=== PATIENT | female | born 1955 | race Caucasian/White ===

== ENCOUNTER → 2018-08-25 | Outpatient (CLI) | payer BC ==
--- NOTE | 2018-08-25 10:06 | RAD ---
Examination: CT head and maxillofacial bones HISTORY: History of headache, dizziness, face pain COMPARISON: None available Technique: Axial CT images of the head was performed without contrast. Axial centimeters maxillary facial bones were performed without contrast. Coronal and sagittal reformats are performed Exposure: One or more of the following individualized dose reduction techniques were utilized for this examination: 1. Automated exposure control 2. Adjustment of the mA and/or kV according to patient size 3. Use of iterative reconstruction technique FINDINGS: No abnormal attenuation within the brain parenchyma. No evidence of acute intracranial hemorrhage. No extra-axial fluid collections. No mass effect or midline shift. Ventricular size is appropriate. Basal cisterns are patent. No fractures identified.Bullard-white differentiation is preserved.Globes and orbits are within normal limits. The visualized bilateral frontal sinuses, maxillary sinuses, sphenoid sinuses, ethmoidal sinuses are clear. The bilateral mastoid air cells are clear. IMPRESSION: 1. No acute intracranial findings. 2. The sinuses are clear. Electronically signed by: Keyon Vargas MD (08/25/2018 10:01 AM) [facility]
--- NOTE | 2018-08-25 11:58 | RAD ---
EXAM: Cervical spine, 5 views. HISTORY: Pain. COMPARISON: None. FINDINGS: Frontal, lateral, bilateral oblique and odontoid views of the cervical spine are obtained. There is minimal anterolisthesis of C3 on C4 and C4 on C5. There is degenerative endplate remodeling with disc space narrowing and osteophytosis at C5-C6 and C6-C7. There is facet arthropathy at multiple levels. There is a tiny cyst or erosion along the anterior superior aspect of C3. There is foraminal stenosis of the lower cervical levels. IMPRESSION: 1. Multilevel degenerative changes of the cervical spine, described in detail above. There is associated foraminal stenosis at the lower cervical levels. 2. No acute osseous finding. Electronically signed by: Venus Dangelo MD (08/25/2018 11:53 AM) [facility]
== END | disposition home or self-care (01) ==
LOC: CT 09:18
PROVIDERS: ATTEND Physician Assistant Medical
DX: M47.812 Spondylosis without myelopathy or radiculopathy, cervical region (principal); R51 Headache; M48.02 Spinal stenosis, cervical region
CPT/HCPCS: 70450; 70486; 72050

== ENCOUNTER → 2020-09-22 | Outpatient (CLI) | payer BC ==
--- NOTE | 2020-10-01 09:08 | RAD ---
DATE: 09/22/2020 9:05 AM EXAM: MAMMO IRAIS SCREENING BILATERAL HISTORY: Screening COMPARISON: 02/09/2019 Bilateral CC and MLO views of the breasts were performed. Bilateral breast tomosynthesis was performed in CC and MLO projections. This study was interpreted with the benefit of Computerized Aided Detection (CAD). FINDINGS: Breast Density: DENSE The breast Parenchyma is dense, which could reduce the sensitivity of mammography. Breast parenchyma level density D. No suspicious masses, microcalcifications or architectural distortion is present to suggest malignancy in either breast. The visualized axillae are unremarkable. IMPRESSION: No mammographic evidence of malignancy. BI-RADS CATEGORY: 1 NEGATIVE RECOMMENDED FOLLOW-UP: 12M 12 MONTH FOLLOW-UP Annual screening mammography is recommended, unless clinically indicated sooner based on symptoms or change in physical exam. PQRS compliance statement: Patient information was entered into a reminder system with a target due date for the next mammogram. Mammography is a sensitive method for finding small breast cancers, but it does not detect them all and is not a substitute for careful clinical examination. A negative mammogram does not negate a clinically suspicious finding and should not result in delay in biopsying a clinically suspicious abnormality. "Our facility is accredited by the [employer] Mammography Program."
== END ==
LOC: MAMMO 08:46
PROVIDERS: ATTEND Obstetrics & Gynecology
DX: Z12.31 Encounter for screening mammogram for malignant neoplasm of breast (principal)
CPT/HCPCS: 77063; 77067

== ENCOUNTER → 2020-12-15 | Outpatient (CLI) | payer BC ==
--- NOTE | 2020-12-15 11:03 | CARD ---
MR#: [id number] Date of Study: 12/15/2020 Ordering Physician: KRISTAL MCCORD, Referring Physician: KRISTAL MCCORD, Tech: Velia Freeman RDCS APPROVED REPORT EXAM: Two-dimensional and M-mode echocardiogram with Doppler and color Doppler. Other Information Quality : Good INDICATION Chest Pain 2D DIMENSIONS RVDd2.0 (2.9-3.5cm)Left Atrium(2D)2.6 (1.6-4.0cm) IVSd0.8 (0.7-1.1cm)Aortic Root(2D)2.6 (2.0-3.7cm) LVDd3.9 (3.9-5.9cm)LVOT Diameter1.9 (1.8-2.4cm) PWd0.8 (0.7-1.1cm)LVDs2.2 (2.5-4.0cm) FS (%) 30.0 %SV51.2 ml LVEF(%)60.0 (>50%) Aortic Valve AoV Peak Silviano.155.1cm/sAoV VTI26.0cm AO Peak GR.9.6mmHgLVOT Peak Silviano.130.9cm/s LVOT VTI 21.49cmAO Mean GR.5mmHg GAETANO (VMAX)2.44uq0HYL (VTI)2.25cm2 Mitral Valve MV E Knpuwkch24.6cm/sMV DECEL ATNV014wh MV A Ziqvwdtt34.0cm/sE/A Ratio0.8 Tricuspid Valve TR P. Jhvjrkyp140mw/sRAP XANFNXPX9jdMo TR Peak Gr.42mnRvBOTA23kfIp Pulmonary Vein S1 Zhmqriqi38.6cm/sD2 Ljtutnqi98.4cm/s LEFT VENTRICLE The left ventricle is normal size. There is normal left ventricular wall thickness. The left ventricu lar systolic function is normal and the ejection fraction is within normal range. The Ejection Fracti on is 55-60%. There is normal LV segmental wall motion. The left ventricular diastolic function and f illing is normal for age. RIGHT VENTRICLE The right ventricle is normal size. The right ventricular systolic function is normal. ATRIA The left atrium size is normal. The right atrium size is normal. The interatrial septum is intact wit h no evidence for an atrial septal defect or patent foramen ovale as noted on 2-D or Doppler imaging. AORTIC VALVE The aortic valve is calcified but opens well. Doppler and Color Flow revealed no significant aortic r egurgitation. There is no significant aortic valvular stenosis. MITRAL VALVE The mitral valve is calcified but opens well. Mitral annular calcification is mild. There is no evide nce of mitral valve prolapse. There is no mitral valve stenosis. Doppler and Color Flow revealed no m itral valve regurgitation noted. TRICUSPID VALVE The tricuspid valve is normal in structure and function. Doppler and Color Flow revealed trace tricus pid regurgitation. The PA pressure was estimated at 21 mmHg. There is no tricuspid valve stenosis. PULMONIC VALVE The pulmonic valve is not well visualized. Doppler and Color Flow revealed no pulmonic valvular regur gitation. There is no pulmonic valvular stenosis. GREAT VESSELS The aortic root is normal in size. The ascending aorta is normal in size. The IVC is normal in size a nd collapses >50% with inspiration. PERICARDIAL EFFUSION There is no evidence of significant pericardial effusion. Critical Notification Critical Value: No <Conclusion> The left ventricle is normal size. The left ventricular systolic function is normal and the ejection fraction is within normal range. The Ejection Fraction is 55-60%. There is normal LV segmental wall motion. Doppler and Color Flow revealed no significant aortic regurgitation. There is no significant aortic valvular stenosis. Doppler and Color Flow revealed no mitral valve regurgitation noted. Doppler and Color Flow revealed trace tricuspid regurgitation. The PA pressure was estimated at 21 mmHg. Signed by : Musa Purdy MD Electronically Approved : 12/15/2020 11:02:39
--- NOTE | 2020-12-16 15:44 | RAD ---
MR#: [id number] Date of Study: 12/15/2020 Ordering Physician: KRISTAL MCCORD, Referring Physician: KRISTAL MCCORD, Tech: Renetta Ross RVT,MÓNICAMS APPROVED REPORT Patient Location: OUT-PATIENT Laterality:Bilateral Indications Dizziness and Vertigo Grayscale images of the bilateral carotid vessels demonstrates mild to moderate diffuse intimal hyper plasia and plaque. No focal high-grade stenosis is noted. Based on velocities there is a moderate 50 to 69% stenosis involving the proximal right common caroti d artery. Otherwise overall 0 to less than 50% stenosis based on velocity criteria in the internal c arotid artery. The right external carotid artery has more moderate 50 to 69% stenosis based on veloc ity criteria. On the left side again there is moderate degree of stenosis based on velocity criteria involving the common carotid artery. No significant high-grade stenosis noted in the left internal carotid artery. Antegrade bilateral vertebral velocities are noted. ICA to CCA ratios are mildly elevated consistent with moderate stenosis bilaterally. Risk Factors Smoking Doppler Spectral Velocity Analysis Right Left pCCA 199/22 cm/spCCA 127/20 cm/s mCCA 116/20 cm/smCCA 140/23 cm/s dCCA 105/23 cm/sdCCA 124/28 cm/s ECA 164/10 cm/sECA 152/20 cm/s pICA 67/20 cm/spICA 85/23 cm/s Alejandrina 85/24 cm/smICA 95/25 cm/s dICA 99/26 cm/sdICA 108/32 cm/s Vert. 56/16 cm/sVert. 69/15 cm/s ICA/CCA 0.50ICA/CCA 0.85 Critical Notification Critical Value: No <Conclusion> 1. Moderate bilateral carotid arterial disease. Recommend routine surveillance. Signed by : Parker Antoine, Electronically Approved : 12/16/2020 15:43:53
== END ==
LOC: ECHO 09:53
PROVIDERS: ATTEND Internal Medicine Cardiovascular Disease
DX: I08.0 Rheumatic disorders of both mitral and aortic valves (principal); I25.10 Atherosclerotic heart disease of native coronary artery without angina pectoris; Z87.891 Personal history of nicotine dependence
CPT/HCPCS: 93306; 93880

== ENCOUNTER → 2021-11-26 | Outpatient (CLI) | payer MEDICARE, BC ==
--- NOTE | 2021-11-26 11:20 | RAD ---
DXA BONE DENSITY AXIAL History: Postmenopausal Comparison: None. TECHNIQUE: Dual energy x-ray absorptiometry of the lumbar spine and right hip was performed. T-score of average bone mineral density based was calculated based on standard deviations above or below the expected young adult normal value. Diagnostic definitions were established by the [employer]. FINDINGS: The average bone mineral density associated with L1-L4 is 1.060 g/cm^2, corresponding with a T-score of -1.0. The average total bone mineral density associated with right hip is 0.761 g/cm^2, corresponding with a T-score of -1.6. Refer to the worksheets for full detail. IMPRESSION: 1. Osteopenia. Average bone mineral density yields a T-score between -1.0 and -2.5. Fracture risk is increased. Electronically signed by: Dio Wilkins MD (11/26/2021 11:18 AM) [id number]
--- NOTE | 2021-11-26 13:40 | RAD ---
INDICATION: 66 years of age asymptomatic female patient presents for screening mammography. TECHNIQUE: Full field craniocaudal and mediolateral oblique images of both breasts were obtained usi ng digital technique with tomosynthesis and also analyzed with computer-aided detection software. COMPARISON: Prior mammographic imaging dating back to 02/09/2019. BREAST COMPOSITION: Category C: The breast tissue is heterogeneously dense, which could obscure detec tion of small masses. FINDINGS: No suspicious masses, microcalcifications or architectural distortion is present to suggest malignanc y in either breast. The visualized axillae are unremarkable. IMPRESSION: No mammographic evidence of malignancy. RECOMMENDATION: Annual screening mammography is recommended, unless clinically indicated sooner based on symptoms or change in physical exam. BIRADS 1: NEGATIVE This study was interpreted with the benefit of Computerized Aided Detection (CAD). ?Your patient's mammogram demonstrates that she has dense breast tissue (breast density category C or D), which could hide abnormalities, and if she has other risk factors for breast cancer that have be en identified, she might benefit from supplemental screening tests that may be suggested by you as he r ordering physician. Dense breast tissue, in and of itself, is a relatively common condition. Theref ore, this information is not provided to cause undue concern, but rather to raise your awareness and to promote discussion with your patient regarding the presence of other risk factors, in addition to dense breast tissue. Your patient's mammography results will be sent to her. Patient information is entered into the reminder system with a target due date for the next screening mammogram. Mammography is the most sensitive method for finding small breast cancers, but it does not detect the m all and is not a substitute for careful clinical examination. A negative mammogram does not negate a clinically suspicious finding and should not result in delay in biopsying a clinically suspicious a bnormality. "Our facility is accredited by the [employer] Mammography Program." Electronically signed by: Zane Cowan DO (11/26/2021 1:38 PM) [id number]
== END ==
LOC: MAMMO 09:43
PROVIDERS: ATTEND Physician Assistant Medical
DX: Z12.31 Encounter for screening mammogram for malignant neoplasm of breast (principal); M85.89 Other specified disorders of bone density and structure, multiple sites; Z78.0 Asymptomatic menopausal state
CPT/HCPCS: 77063; 77067; 77080